=== PATIENT | female | born 1990 | race Two or more races ===

== ENCOUNTER 2022-06-22 20:42 | Emergency (ER) | payer MEDICAID, OTHER ==
[~2022-06-22] VITALS: Ht 162.6 cm; Wt 81.8 kg
[2022-06-22 21:10] VITALS: BP 123/68
[2022-06-22] MEDS ORDERED: KETOROLAC TROMETH 60MG/2ML VIAL IM ONE (21:15)
[2022-06-22 21:56] LABS: Urine Bacteria FEW /hpf (None Seen); Urine Blood Negative /uL (Negative); Urine Specific Gravity 1.012 (1.001-1.035); Urine WBC 17 /hpf (0 - 5)
== END 2022-06-23 01:20 | disposition home or self-care (01) ==
LOC: ER 20:46
DX: M54.50 Low back pain, unspecified (principal); Z32.02 Encounter for pregnancy test, result negative
CPT/HCPCS: 81001; 81025